=== PATIENT | male | born 1965 | race Two or more races ===

== ENCOUNTER → 2017-10-26 | Outpatient (CLI) | payer BC ==
[~2017-10-26] MED LIST: IOHEXOL 350 MG/ML 100ML IJ ONE
[2017-10-26 10:50] VITALS: BP 126/76
[2017-10-26 14:26] VITALS: BP 125/74
== END | disposition home or self-care (01) ==
LOC: Rad HDHVI 10:08
PROVIDERS: ATTEND Internal Medicine Cardiovascular Disease
DX: K80.20 Calculus of gallbladder without cholecystitis without obstruction (principal); R91.8 Other nonspecific abnormal finding of lung field; E78.00 Pure hypercholesterolemia, unspecified
CPT/HCPCS: 71275; 82565; 96374; G0463; Q9967

== ENCOUNTER → 2017-11-01 | Outpatient (CLI) | payer BC ==
[~2017-11-01] VITALS: Ht 182.9 cm; Wt 106.6 kg
[~2017-11-01] MED LIST changes: +ADENOSINE 90 MG in GIVE UN-DILUTED 0 ML IV ONE; +ADENOSINE 90 MG/30 ML INJ IV ONE; -IOHEXOL 350 MG/ML 100ML IJ ONE
== END | disposition home or self-care (01) ==
LOC: Rad HDHVI 13:34
PROVIDERS: ATTEND Internal Medicine Cardiovascular Disease
DX: E78.00 Pure hypercholesterolemia, unspecified (principal); R07.89 Other chest pain
CPT/HCPCS: 78452; 93005; 93306; 96374; 96375; A9500; J0153

== ENCOUNTER → 2019-01-02 | Outpatient (CLI) | payer BC ==
[~2019-01-02] MED LIST changes: -ADENOSINE 90 MG in GIVE UN-DILUTED 0 ML IV ONE; -ADENOSINE 90 MG/30 ML INJ IV ONE; +IOHEXOL 350 MG/ML 100ML IJ ONE
[2019-01-02 08:30] VITALS: BP 131/89
--- NOTE | 2019-01-02 08:42 | NUR ---
IV insertion IV access obtained, via clean sterile technique by inserting 20 gauge catheter at after attempt(s)BY BIMAL TENORIO AND 1 ATTEMPT BY CORA TENORIO. IV secured properly. No trauma to site. Patient tolerated procedure well. TO CT SCAN WITH KEVON
--- NOTE | 2019-01-02 08:45 | NUR ---
CT COMPLETED AND TOLERATED WELL. WITHOUT COMPLAINT. VS WNL.
[2019-01-02 09:00] VITALS: BP 123/82
--- NOTE | 2019-01-02 09:00 | NUR ---
Discharge Instructions See e-MAR for any mediations given with this visit. Patient education given on disease process. Patient verbalized understanding. Previous labs reviewed. Patient discharged in stable condition with after care instructions
== END | disposition home or self-care (01) ==
LOC: Rad HDHVI 08:07
PROVIDERS: ATTEND Internal Medicine Cardiovascular Disease
DX: K80.20 Calculus of gallbladder without cholecystitis without obstruction (principal); R94.4 Abnormal results of kidney function studies
CPT/HCPCS: 36415; 71260; 82565; G0463; Q9967